=== PATIENT | female | born 2000 | race African-American/Black ===

== ENCOUNTER 2025-03-10 09:41 | Emergency (ER) | payer OTHER, SELFPAY ==
--- NOTE | ~2025-03-10 | CT_ITS ---
CLINICAL HISTORY: OBS positive, hematochezia CT abdomen and pelvis with and without contrast Comparison: None provided Findings: No consolidation or effusion. The gallbladder and solid organs are within normal limits. No renal stones. On the noncontrast CT, there is small amount of contrast in the bilateral collecting system. No bowel obstruction, pneumoperitoneum, or pneumatosis. There is moderate amount of fecal material within the colon. Mild bowel wall thickening of the descending colon. Pelvic contents unremarkable. No evidence of acute appendicitis. Calcification of the pelvis are likely to be phleboliths. No acute fracture. IMPRESSION: No evidence of active GI bleed. Mild bowel wall thickening of the descending colon. Colitis cannot be excluded. This document has been electronically signed by: Amauri Field MD on 03/10/2025 17:57:35
[2025-03-10 09:44] VITALS: BP 126/88; PULSE 80; RESP 18; TEMP 36.8; O2SAT 100; BMI 28.0
--- NOTE | 2025-03-10 10:53 | ED_ITS ---
HPI - General Adult General Chief complaint: GI Bleed Stated complaint: abd pain Time Seen by Provider: 03/10/25 10:52 Source: patient Mode of arrival: ambulatory Limitations: no limitations History of Present Illness ED Provider: JOSE ANTONIO STUBBS PA-C HPI narrative: 24 year old presents to the ED today for evaluation of diffuse abdominal pain since yesterday. Admits to seeing bright red blood in the toilet bowl after a BM yesterday. She denies straining to pass BM. States her stool was brown. Denies loose or hard stool. Reports associated chills and subjective fever yesterday. She is not on anticoagulation. No recent travel or sick contacts. No hx of abdominal surgeries. Admits she was vegan for 1 week and began eating meat again 2 days ago. At present, she does not have any abdominal pain. When her pain comes, it is a 5/10 at its worst. Denies chest pain, SOB, N/V, flank pain, urinary sx. Related Data Allergies Allergy/AdvReac Type Severity Reaction Status Date / Time Iodinated Contrast Media Allergy Hives Verified 03/10/25 14:29 (Contrast Dye) Sulfa (Sulfonamide Allergy Unknown Verified 03/10/25 09:46 Antibiotics) Review of Systems 2 Review of Systems: Constitutional: No fever, chills, fatigue, night sweats, weight changes ENT/Mouth: No ear pain, hearing loss, nasal congestion, sinus pain, rhinorrhea, sore throat Eyes: No eye pain, swelling, redness, vision changes, discharge Cardio: No chest pain, palpitations, MATTHEWS, orthopnea, peripheral edema Pulm: No SOB, cough, sputum, wheezing, dyspnea, hemoptysis GI: No nausea, vomiting, hematemesis, abdominal pain, diarrhea, constipation, melena, +hematochezia : No irregular bleeding, dysuria, frequency, urgency, hesitancy, hematuria, flank pain, urinary flow changes, urinary incontinence or retention MSK: No back pain, neck pain, joint pain, myalgias Skin: No lesions, rashes Neuro: No weakness, numbness, paresthesias, LOC, dizziness, headache Psych: No anxiety/panic, depression, SI/HI, AH/VH All other systems reviewed and are negative. [facility] Past Medical History Attestation statement: The following information was validated with the patient. Source: old records reviewed and nursing notes reviewed Physical Exam ED Vital Signs: Vital Signs - 24 hr 03/10/25 09:44 03/10/25 11:28 03/10/25 14:58 Temperature 98.2 F 98.4 F 98.8 F Pulse Rate 80 75 77 Respiratory Rate 18 18 16 Blood Pressure 126/88 103/64 147/88 H Pulse Oximetry 100 99 99 Oxygen Delivery Method Room Air Room Air Room Air 03/10/25 18:10 Temperature 98.8 F Pulse Rate 77 Respiratory Rate 16 Blood Pressure 147/88 H Pulse Oximetry 99 Oxygen Delivery Method Room Air BMI result Body Mass Index 28.0 vital signs stable, afebrile General: Well appearing, in no acute distress. Skin: Warm, dry, intact. No rashes or lesions. Head: Normocephalic, atraumatic. EENT: Hearing is intact b/l. Conjunctiva clear. Sclera is anicteric. PERRLA. EOM intact. Moist mucous membranes.? Cardiac: Chest wall symmetric Lungs: Normal respiratory effort without accessory muscle use. CTA bilaterally Abdomen: soft, ND, ttp of the lower abdomen without rebound or guarding. 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 Normal rectal sphincter tone. No external masses or lesions. Palpable soft stool in rectal vault. Stool is normal in appearance. OBS positive. Back: No midline spinous or paraspinal tenderness. No step off deformity. Ext: Upper and lower extremities atraumatic, without tenderness, deformity, swelling or erythema Neuro: AOx3. Normal speech. Ambulating with steady gait. Psych: Appropriate mood and affect. Responds appropriately to questions. Course Course Course Narrative: CBC without leukocytosis or left shift. Microcytic anemia, H and H .1. No priors to compare to. Chemistry without acute electrolyte abnormality requiring intervention. No DWAYNE. Mild elevation in AST/ALT. No priors to compare to. Lipase WNL. Beta quant undetectable. Urine is trace leukocyte esterase and trace urine bacteria, 3-5 urine squamous epithelial cells. No urinary symptoms. Will await culture results for treatment. obs positive. CT A/P ordered for further evaluation. 1428 -- called to patient's bedside as she broke out in a pruritic rash on her face following IV contrast administration. concern for allergic reaction. airway patent - satting 100% on RA. IV Benadryl ordered. will continue to monitor. 1758 -- multiple attempts at contacting Radiology to have scan read. Scan is still not read. contacting radiology again. 1814 -- ct a/p showing mild colitis. no other acute findings. discussed work up results w/ patient. she has not had a bloody BM in ED. asymptomatic, anxious to go home. educated on symptomatic treatment. Patient has remained stable throughout ED visit today. Discussed worrisome signs and symptoms and when to return to the ED. All questions answered at this time. Patient is agreeable with disposition and stable for discharge. Medications Administered Discontinued Medications Generic Name Dose Route Start Last Admin Trade Name Freq PRN Reason Stop Dose Admin Diphenhydramine HCl 50 mg 03/10/25 14:26 03/10/25 14:29 Diphenhydramine Hcl 50 Mg/Ml Vial IVPUSH 03/10/25 14:27 50 mg ONCE ONE Administration Iohexol 85 ml 03/10/25 14:20 03/10/25 14:21 Iohexol 350 Mg/Ml 100 Ml Infus..Btl IV 03/10/25 14:21 85 ml ONCE ONE Administration Morphine Sulfate 2 mg 03/10/25 14:43 03/10/25 14:47 Morphine Sulfate 2 Mg/Ml Cartridge IVPUSH 03/10/25 14:44 2 mg ONCE ONE Administration Protocol Ondansetron HCl 4 mg 03/10/25 14:41 03/10/25 14:45 Ondansetron Hcl 4 Mg/2 Ml Vial IVPUSH 03/10/25 14:42 4 mg ONCE ONE Administration Medical Decision Making Medical Decision Making [facility] Narrative: 24 year old presents to the ED today for evaluation of diffuse abdominal pain since yesterday. vital signs stable. afebrile. she is well appearing. exam benign. Differential diagnosis includes IBD, diverticulosis, diverticulitis, hemorrhoid, fissure, colitis, PUD, perforated ulcer, ischemic bowel Plan for labs, OBS. Differential Diagnosis Differential Diagnoses: The differential diagnosis associated with the presentation includes as above. Admission/Observation not indicated. Lab Data [facility] Lab Attestation statement: I reviewed the patient's lab results. as above. 03/10/25 11:26 03/10/25 11:26 Labs: Lab Results 03/10/25 03/10/25 03/10/25 Range/Units 11:26 12:18 12:49 WBC 8.2 (4.8-10.8) X10*3/uL RBC 4.90 (4.20-5.50) X10*6/uL Hgb 11.0 L (12.0-16.0) g/dl Hct 33.1 L (37.0-47.0) % MCV 67.6 L (80.0-98.0) fL MCH 22.4 L (27.0-33.0) pg MCHC 33.2 (31.0-35.0) g/dl RDW 18.0 H (11.0-16.0) % Plt Count 349 (160-400) X10*3/uL MPV 9.7 (9.4-12.3) fL Immature Gran % (Auto) 0.2 (0.0-0.4) % Neut % (Auto) 69.9 (45-73) % Lymph % (Auto) 21.3 (20-40) % [place] % (Auto) 6.1 (2-11) % Eos % (Auto) 1.9 (0-4) % Baso % (Auto) 0.6 (0-2) % Lymph # (Auto) 1.8 (1.2-4.9) X10*3/uL [place] # (Auto) 0.5 (0.1-1.2) X10*3/uL Eos # (Auto) 0.2 (0.0-0.4) X10*3/uL Baso # (Auto) 0.1 (0.0-0.2) X10*3/uL Abs Immat Gran (auto) 0.02 (0.00-0.03) X10*3/uL Absolute Neuts (auto) 5.7 (2.0-8.3) x10*3/uL Absolute Nucleated RBC 0.000 (0.0-0.012) X10*3/uL Nucleated RBC % (auto) 0.0 (0.0-0.2) /100WBC Sodium 140 (135-145) mmol/L Potassium 4.5 (3.3-5.1) mmol/L Chloride 110 H (96-108) mmol/L Carbon Dioxide 23 (22-29) mmol/L Anion Gap 12 (12-20) BUN 10 (9-16) mg/dL Creatinine 0.85 (0.5-1.4) mg/dL Estim Creat Clear Calc 103.4 Estimated GFR > 60 Random Glucose 85 (60-115) mg/dL Calcium 9.1 (8.4-10.2) mg/dL Magnesium 2.0 (1.6-2.6) mg/dL Total Bilirubin 0.3 (0.0-1.0) mg/dL AST 39 H (5-31) U/L ALT 40 H (0-31) U/L Alkaline Phosphatase 57 (39-117) U/L Total Protein 7.1 (6.5-8.0) g/dL Albumin 4.3 (3.5-5.0) g/dL Lipase 34 (8-78) U/L Beta HCG, Quant < 2 mIU/mL Urine Color Yellow Urine Appearance Clear Urine pH 7.0 (5.0-9.0) Ur Specific [place] 1.010 (1.005-1.025) Urine Protein Negative (Neg-Trace) mg/dL Urine Glucose (UA) Negative (Negative) mg/dL Urine Ketones Negative (Negative) mg/dL Urine Blood Negative (Negative) Urine Nitrite Negative (Negative) Ur Leukocyte Esterase Trace H (Negative) Urine RBC 0-2 (0-2) /HPF Urine WBC 0-5 (0-5) /HPF Ur Squamous Epith Cells 3-5 (0-2) /HPF Urine Bacteria Trace (None Seen) Hyaline Casts 0-2 (0-2) /LPF Stool Occult Blood POSITIVE (NEGATIVE) Independent Interpretation I performed an independent interpretation of an: CT Scan Interpretation: ct a/p wo bowel obstruction or active GI bleed Radiology Impression Discussion of test interpretation with radiology: I have reviewed the radiologist's reading. Radiologist Impression: Date of Service: 03/10/25 Procedure(s): CT gi bleed abd pel wo/w IVcon Accession Number(s): [id number] cc: Physician,None ; Jose Antonio Stubbs~ Report Number: [id number]: Total DLP = 1216.00 mGy-cm CLINICAL HISTORY: OBS positive, hematochezia CT abdomen and pelvis with and without contrast Comparison: None provided Findings: No consolidation or effusion. The gallbladder and solid organs are within normal limits. No renal stones. On the noncontrast CT, there is small amount of contrast in the bilateral collecting system. No bowel obstruction, pneumoperitoneum, or pneumatosis. There is moderate amount of fecal material within the colon. Mild bowel wall thickening of the descending colon. Pelvic contents unremarkable. No evidence of acute appendicitis. Calcification of the pelvis are likely to be phleboliths. No acute fracture. IMPRESSION: No evidence of active GI bleed. Mild bowel wall thickening of the descending colon. Colitis cannot be excluded. This document has been electronically signed by: Amauri Field MD on 03/10/2025 17:57:35 Independent Historian Clinical information obtained from an independent historian. History obtained from or confirmed by: Friend Social Determinants Patient?s care significantly limited by Social Determinants of Health including: Other Social Determinant of Health Critical Care Time Critical Care Time Critical Care Time: Yes Total Critical Care Time: 32 Attestation: Critical care time in the amount of 32 minutes has been provided to the patient in terms of direct patient care, frequent reevaluation on IV morphine, review and interpretation of medical data and results, and management of potentially life-threatening conditions. This is all outside of any medical procedures. Discharge Plan Discharge Clinical Impression: Colitis Patient Disposition: Home, Self-Care Instructions: Colitis (ED) Additional Instructions: Your workup today is reassuring. The CT scan of your abdomen shows mild colitis. This should resolve on his own. Make sure you are staying hydrated. You may use [id number] antidiarrheals such as Pepcid or Imodium if you began to have loose stool. You may take Tylenol as needed for pain/discomfort. Return with any new or worsening symptoms. In the case of an emergency call 911. Referrals: Physician,None [Primary Care Provider, Medical] Interventions: ED Discharge Assessment Last Done: 03/10/25 18:10 Discharge Date/Time: 03/10/25 18:11 Print Language: Armenian
[2025-03-10 11:28] VITALS: BP 103/64; PULSE 75; RESP 18; TEMP 36.9; O2SAT 99
[2025-03-10 11:32] LABS: MANUAL DIFF FLAG NO
[2025-03-10 11:33] LABS: Hematocrit 33.1 % (37.0-47.0); Hemoglobin 11.0 g/dl (12.0-16.0); Imm Gran Abs Auto 0.02 X10*3/uL (0.00-0.03); Imm Gran Pct Auto 0.2 % (0.0-0.4); Lymphocytes Absolute Auto 1.8 X10*3/uL (1.2-4.9); Mean Corpuscular HGB Conc 33.2 g/dl (31.0-35.0); Mean Corpuscular Hemoglobin 22.4 pg (27.0-33.0); Mean Corpuscular Volume 67.6 fL (80.0-98.0); NRBC Abs Auto 0.000 X10*3/uL (0.0-0.012); NRBC Pct Auto 0.0 /100WBC (0.0-0.2); Platelet Count 349 X10*3/uL (160-400); Red Blood Count 4.90 X10*6/uL (4.20-5.50); White Blood Count 8.2 X10*3/uL (4.8-10.8)
[2025-03-10 11:46] LABS: Alanine Aminotransferase 40 U/L (0-31); Albumin Level 4.3 g/dL (3.5-5.0); Alkaline Phosphatase 57 U/L (39-117); Anion Gap 12 (12-20); Aspartate Amino Transferase 39 U/L (5-31); Blood Urea Nitrogen 10 mg/dL (9-16); Calcium 9.1 mg/dL (8.4-10.2); Carbon Dioxide 23 mmol/L (22-29); Chloride 110 mmol/L (96-108); Creatinine Clr Calc Pharmacy 103.4; Estimated Glomerular Filt Rate > 60; Lipase 34 U/L (8-78); Magnesium 2.0 mg/dL (1.6-2.6); Potassium 4.5 mmol/L (3.3-5.1); Sodium 140 mmol/L (135-145); Total Protein 7.1 g/dL (6.5-8.0)
[2025-03-10 12:22] LABS: OBS Int Ctl Valid YES; OBS1 POSITIVE (NEGATIVE)
[2025-03-10 12:56] LABS: Appearance Urine Clear; Glucose Urine UA Negative (Negative); PH 7.0 (5.0-9.0); Specific Gravity - Urine 1.010 (1.005-1.025); UMIC TRIGGER UACC YES
[2025-03-10] MEDS: iohexoL 350 MG/ML 100 ML INFUS..BTL 85 ML IV (14:21)
--- NOTE | 2025-03-10 14:27 | PC.NURSE ---
after CT with contrast pt began having hives on her face, reports feeling weird. denies breathing difficulty, airway intact, pt managing saliva well. O2 100% HR 94. Shobha SANTOS made aware, will order benadryl.
--- NOTE | 2025-03-10 14:41 | PC.NURSE ---
Pt c/o of increased stomach pain and requested provider. Provider in to see pt
[2025-03-10 14:58] VITALS: BP 147/88; PULSE 77; RESP 16; TEMP 37.1; O2SAT 99
[2025-03-10 18:10] VITALS: BP 147/88; PULSE 77; RESP 16; TEMP 37.1; O2SAT 99
== END 2025-03-10 18:11 | disposition home or self-care (01) ==
PROVIDERS: Physician Assistant Medical; Emergency Provider Emergency Medicine
DX: K52.9 Noninfective gastroenteritis and colitis, unspecified (principal); R10.9 Unspecified abdominal pain; Z79.899 Other long term (current) drug therapy
CPT/HCPCS: 36415; 74178; 80053; 81001; 82272; 83690; 83735; 84702; 85025; 96374; 96375; 99284; J1200; J2270; J2405; Q9967

== ENCOUNTER → 2025-03-10 12:29 | Outpatient (BNV) | payer OTHER, SELFPAY | PROVIDERS: Emergency Provider Emergency Medicine; Visit Provider Nuclear Medicine | DX: R10.9 Unspecified abdominal pain (principal) | CPT/HCPCS: 74178 ==